=== PATIENT | male | born 1975 | race Two or more races ===

== ENCOUNTER 2018-02-19 08:55 | Outpatient (CLI) | payer OTHER | END 2018-02-19 09:06 | disposition home or self-care (01) | LOC: LAB 08:55 | DX: Z85.528 Personal history of other malignant neoplasm of kidney (principal) ==

== ENCOUNTER 2018-02-19 09:13 | Outpatient (CLI) | payer OTHER | END 2018-02-19 09:28 | disposition home or self-care (01) | LOC: SONOGRAMA 09:13 | DX: E04.2 Nontoxic multinodular goiter (principal); Z85.528 Personal history of other malignant neoplasm of kidney ==

== ENCOUNTER 2018-02-20 09:35 | Outpatient (CLI) | payer OTHER | END 2018-02-20 09:50 | disposition home or self-care (01) | LOC: TOM 09:35 | DX: Z85.528 Personal history of other malignant neoplasm of kidney (principal) ==